=== PATIENT | female | born 1990 | race Caucasian/White ===

== ENCOUNTER 2017-05-10 21:29 | Emergency (ER) | payer OTHER ==
[~2017-05-10] VITALS: Ht 160 cm; Wt 71.0 kg
[~2017-05-10 21:29] MED LIST: LEVO50TA PO
[2017-05-10 21:32] VITALS: TEMP 36.7; Ht 160 cm; Wt 71.0 kg
[2017-05-10] MEDS ORDERED: SODIUM CHLORIDE 0.9% 1000ML 1,000 ML IV ONE (22:00)
[2017-05-10 22:15] LABS: BASO % 0.6 %; BASO ABS # 0.03 K/uL (0-0.2); COMPLETE YES; IG% 0.2 %; LYMPH % 46.5 %; LYMPH ABS # 2.38 K/uL (1.2-3.4); MEAN CELL VOLUME 93.5 fL (80-100); MEAN CORPUSCULAR HEMOGLOBIN 32.2 pg (25-34); MEAN CORPUSCULAR HGB CONC 34.5 g/dl (32-36); MEAN PLATELET VOLUME 10.6 fL (7.4-10.4); MONO % 5.5 %; NEUT % 45.2 %; PLATELET COUNT 220 K/uL (130-400); RED BLOOD COUNT 4.28 M/uL (4.2-5.4); WHITE BLOOD COUNT 5.12 K/uL (4.8-10.8)
[2017-05-10 22:28] LABS: POINT OF CARE TROPONIN I < 0.030 ng/ml (0-0.045)
[2017-05-10 22:29] LABS: URINE APPEARANCE CLEAR (CLEAR); URINE BILIRUBIN NEG (NEG); URINE COLOR YELLOW; URINE NITRITE NEG (NEG); URINE PH 5.5 (4.5-7.5); URINE SPECIFIC GRAVITY 1.022 (1.000-1.030); UROBILINOGEN NEG (NEG); ZZUR CULT IF INDIC CLEAN CATCH NO
[2017-05-10 22:33] LABS: BUN/CREATININE RATIO 17.9 (10-20); CALCIUM 8.9 mg/dl (8.5-10.1); CREATININE 0.75 mg/dl (0.60-1.20); POTASSIUM 3.4 mmol/L (3.5-5.1)
--- NOTE | 2017-05-10 22:37 | DIAGNOSTIC IMAGING REPORT ---
CHEST 2 VIEWS ROUTINE CLINICAL HISTORY: Near syncope/sob COMPARISON STUDY: No previous studies for comparison. FINDINGS: No pneumothorax or pleural effusion is present. Cardiac size is normal. Mediastinal contours are normal. A coiled metallic density within the AP window represents a patent ductus arteriosus closure device. No evidence of pulmonary edema. There is no consolidation to suggest pneumonia. IMPRESSION: No acute cardiopulmonary findings. Electronically signed by: Curtis Newsome M.D. 05/10/2017 10:36 PM Dictated Date/Time: 05/10/2017 10:34 PM
[2017-05-10 22:38] LABS: MANUAL MICROSCOPIC REQUIRED? NO; REVIEW REQ? NO
[2017-05-10 22:44] LABS: ALB/GLOB RATIO 1.1 (0.9-2); THYROID STIMULATING HORMONE 4.26 uIu/ml (0.300-4.500)
[2017-05-10 23:20] VITALS: BP 113/66; PULSE 96; O2SAT 97
--- NOTE | 2017-05-11 04:22 | EMERGENCY ROOM VISIT NOTE ---
History First contact with patient: 21:34 Chief Complaint: SHORTNESS OF BREATH Stated Complaint: LIGHTHEADED,TINGLY,SHAKING,DIFFICULTY Nursing Triage Summary: pt reports that she had a sudden onset of SOB. pt then sat down and reports feeling "tingly and out of it." pt then felt weak. pt denies SOb at this time. History of Present Illness The patient is a 26 year old female who presents to the Emergency Room with complaints of acute onset of lightheadedness, dizziness, and shortness of breath. The patient states that she was standing at home when she began with onset of symptoms. She initially sat down, and then laid down without significant improvement of symptoms. The patient felt weak and tired. She had fleeting shortness of breath that has since resolved. The patient estimates that her total episode was one to 2 minutes in length. She did not have seizure -like activity as she was immediately attended to by her significant other. The patient has had several episodes of this in the past. She has followed with cardiology and her primary care physician. She had an echocardiogram last year that was normal. She has been without recent illness or travel. She denies chance of . No new medications. She rates her current discomfort a 2/10. Review of Systems More than 10 systems were reviewed and otherwise negative with the exception of history of present illness. Past Medical/Surgical History Medical Problems: (1) Hypothyroidism Family History Gallbladder disease Lung disease Social History Smoking Status: Never Smoker Alcohol Use: occasionally Drug Use: none Marital Status: in relationship Housing Status: lives with significant other Occupation Status: employed Current/Historical Medications No Active Prescriptions or Reported Meds Physical Exam Vital Signs Date Time Temp Pulse Resp B/P (MAP) Pulse Ox O2 Delivery O2 Flow Rate FiO2 05/10/17 23:20 96 18 113/66 97 Room Air 05/10/17 22:23 78 16 117/68 100 Room Air 05/10/17 22:19 100 Room Air 05/10/17 21:45 79 05/10/17 21:32 36.7 74 18 144/84 100 Room Air Pain Rating (0-10): 0 Physical Exam VITALS: Vitals are noted on the nurse's note and reviewed by myself. Vital signs stable. GENERAL: Well-developed, well-nourished, white female, who is in no acute distress and resting comfortably. Patient is cooperative with the examination. HEAD: Normocephalic atraumatic. EARS: External ear normal. External auditory canals clear, tympanic membranes pearly martinez without erythema or effusion bilaterally. EYES: Pupils equal round and reactive to light and accommodation. Conjunctivae without injection, sclerae without icterus. Extraocular movements intact. NOSE: Patent, turbinates without inflammation or discharge. MOUTH: Mucous membranes moist. Tonsils are not enlarged. Pharynx without erythema, blood, or exudate. Uvula midline. Airway patent. NECK: Supple without nuchal rigidity. No lymphadenopathy. No thyromegaly. Cervical spine is nontender. HEART: Regular rate and rhythm without murmurs gallops or rubs. LUNGS: Clear to auscultation bilaterally without wheezes, rales or rhonchi. No retractions or accessory muscle use. ABDOMEN: Positive normal bowel sounds x 4. Soft, nontender, without masses or organomegaly. No guarding or rebound tenderness. MUSCULOSKELETAL: No muscle atrophy, erythema, or edema noted. Full range of motion without joint tenderness in all extremities. No tenderness to palpation. Normal gait. Strength 5/5 throughout. NEURO: Patient was alert and oriented to person place and time. CN II through XII grossly intact. Deep tendon reflexes 2+ throughout. No focal neurological deficits SKIN: The skin was without rashes, erythema, edema, or bruising. Capillary reflex less than 2 seconds. Medical Decision & Procedures ER Provider Diagnostic Interpretation: CHEST 2 VIEWS ROUTINE CLINICAL HISTORY: Near syncope/sob COMPARISON STUDY: No previous studies for comparison. FINDINGS: No pneumothorax or pleural effusion is present. Cardiac size is normal. Mediastinal contours are normal. A coiled metallic density within the AP window represents a patent ductus arteriosus closure device. No evidence of pulmonary edema. There is no consolidation to suggest pneumonia. IMPRESSION: No acute cardiopulmonary findings. Laboratory Results 05/10/17 22:05 Red Blood Count 4.28, Mean Corpuscular Volume 93.5, Mean Corpuscular Hemoglobin 32.2, Mean Corpuscular Hemoglobin Concent 34.5, Mean Platelet Volume 10.6, Neutrophils (%) (Auto) 45.2, Lymphocytes (%) (Auto) 46.5, Monocytes (%) (Auto) 5.5, Eosinophils (%) (Auto) 2.0, Basophils (%) (Auto) 0.6, Neutrophils # (Auto) 2.32, Lymphocytes # (Auto) 2.38, Monocytes # (Auto) 0.28, Eosinophils # (Auto) 0.10, Basophils # (Auto) 0.03 05/10/17 22:05 Test 05/10/17 22:05 05/10/17 22:09 05/10/17 22:15 White Blood Count 5.12 K/uL (4.8-10.8) Red Blood Count 4.28 M/uL (4.2-5.4) Hemoglobin 13.8 g/dL (12.0-16.0) Hematocrit 40.0 % (37-47) Mean Corpuscular Volume 93.5 fL (80-100) Mean Corpuscular Hemoglobin 32.2 pg (25-34) Mean Corpuscular Hemoglobin Concent 34.5 g/dl (32-36) Platelet Count 220 K/uL (130-400) Mean Platelet Volume 10.6 fL (7.4-10.4) Neutrophils (%) (Auto) 45.2 % Lymphocytes (%) (Auto) 46.5 % Monocytes (%) (Auto) 5.5 % Eosinophils (%) (Auto) 2.0 % Basophils (%) (Auto) 0.6 % Neutrophils # (Auto) 2.32 K/uL (1.4-6.5) Lymphocytes # (Auto) 2.38 K/uL (1.2-3.4) Monocytes # (Auto) 0.28 K/uL (0.11-0.59) Eosinophils # (Auto) 0.10 K/uL (0-0.5) Basophils # (Auto) 0.03 K/uL (0-0.2) RDW Standard Deviation 41.0 fL (36.4-46.3) RDW Coefficient of Variation 12.1 % (11.5-14.5) Immature Granulocyte % (Auto) 0.2 % Immature Granulocyte # (Auto) 0.01 K/uL (0.00-0.02) Anion Gap 6.0 mmol/L (3-11) Est Creatinine Clear Calc Drug Dose 108.3 ml/min Estimated GFR () 128.4 Estimated GFR (Non- 110.8 BUN/Creatinine Ratio 17.9 (10-20) Calcium Level 8.9 mg/dl (8.5-10.1) Total Bilirubin 0.4 mg/dl (0.2-1) Aspartate Amino Transf (AST/SGOT) 15 U/L (15-37) Alanine Aminotransferase (ALT/SGPT) 22 U/L (12-78) Alkaline Phosphatase 61 U/L (45-117) Total Protein 7.0 gm/dl (6.4-8.2) Albumin 3.7 gm/dl (3.4-5.0) Globulin 3.3 gm/dl (2.5-4.0) Albumin/Globulin Ratio 1.1 (0.9-2) Thyroid Stimulating Hormone (TSH) 4.260 uIu/ml (0.300-4.500) Bedside D-Dimer 65 ng/mlFEU (0-450) Bedside Troponin I < 0.030 ng/ml (0-0.045) Urine Color YELLOW Urine Appearance CLEAR (CLEAR) Urine pH 5.5 (4.5-7.5) Urine Specific Maud 1.022 (1.000-1.030) Urine Protein NEG (NEG) Urine Glucose (UA) NEG (NEG) Urine Ketones NEG (NEG) Urine Occult Blood NEG (NEG) Urine Nitrite NEG (NEG) Urine Bilirubin NEG (NEG) Urine Urobilinogen NEG (NEG) Urine Leukocyte Esterase NEG (NEG) Urine Test NEG (NEG) Medications Administered Medications (Trade) Dose Ordered Sig/Devin Route Start Time Stop Time Status Last Admin Dose Admin Sodium Chloride 1,000 ml @ 999 mls/hr Q1H1M ONCE IV 05/10/17 22:00 05/10/17 23:00 DC 05/10/17 22:13 999 MLS/HR ED Course Physical exam and history were performed. Nursing notes, EMR, and Medication List were personally reviewed. Patient appears to have had a near syncopal episode with associated shortness of breath. She is evidently had symptoms like this in the past. IV access was established and labs were obtained. The patient was hydrated with normal saline. Chest x-ray was performed. EKG was normal sinus rhythm at 80 bpm without ischemia or ectopy. The patient was placed on a swimming pool plasterer helper. The patient's blood work is as above and was reviewed. She does not have a significantly elevated white blood cell count, gross anemia, bandemia, or significant electrolyte imbalance. Lipase and transaminases are nondiagnostic. TSH is euthyroid state. Troponin and d-dimer 1 are both negative. Urine is without signs of infection. She is not . Chest x-ray is without acute findings. The patient remained in normal sinus rhythm while on the swimming pool plasterer helper. The patient was reevaluated multiple times with a course of her stay. She did not have any worsening or return of her symptoms, which evidently only lasted for a few moments. The patient has had symptoms like this in the past, and has evidently undergone cardiology evaluation previously. Her symptoms certainly could be related to stress or anxiety. I do not suspect a cardiopulmonary etiology of her symptoms at this time. She should follow with her primary care physician, as she may be a good candidate for an event monitor. The patient was invited back to the emergency department with any new, worsening, or concerning symptoms. She was pleased with plan of care and rated her discomfort a 0/10 at the time of departure. The chart was completed utilizing [employer] Speech Voice Recognition Software. Grammatical errors, random word insertions, pronoun errors, and incomplete sentences are an occasional consequence of this system due to software limitations, ambient noise, and hardware issues. Any formal questions or concerns about the content, text, or information contained within the body of this dictation should be directly addressed to the provider for clarification. . Medical Decision Differential diagnosis: Etiologies such as vasovagal event, infection, hypoglycemia, electrolyte abnormalities, cardiac sources, intracerebral event, toxicologic, neurologic, as well as others were entertained. Medication Reconcilliation Current Medication List: was personally reviewed by me Blood Pressure Screening Patient's blood pressure: Normal blood pressure Impression Primary Impression: Near syncope Departure Information Dispostion Home / Self-Care Condition GOOD Prescriptions No Active Prescriptions or Reported Meds Forms HOME CARE DOCUMENTATION FORM, IMPORTANT VISIT INFORMATION Patient Instructions My [facility] Additional Instructions You were seen and evaluated today on an emergency basis only. This is not a substitute for, or an effort to provide, complete comprehensive medical care. It is not possible to recognize and treat all injuries or illnesses in a single emergency department visit. For this reason it is recommended that you followup with your primary care physician next week for ongoing care and evaluation. Drink plenty of fluids and remain well hydrated. You are welcome to return to the emergency department anytime with new, worsening, or concerning symptoms.
== END 2017-05-10 23:39 | disposition home or self-care (01) ==
LOC: C.EDB 21:30 → C.EDA 23:39
DX: R55 Syncope and collapse (principal); E03.9 Hypothyroidism, unspecified

== ENCOUNTER 2021-02-16 07:41 | Inpatient (IN) ==
[2021-02-16] MEDS ORDERED: OXYTOCIN 30 UNITS/500 ML BAG IV PRN (08:19)
[2021-02-16 08:53] LABS: Hematocrit (blood only) 31.5 % (37-47); Hemoglobin 10.4 g/dL (12.0-16.0); Mean Corpuscular Volume 90.8 fL (80-100); Mean Platelet Volume 11.2 fL (7.4-10.4); Platelet Count 237 K/uL (130-400); RDW Standard Deviation 45.3 fL (36.4-46.3); Red Blood Count 3.47 M/uL (4.2-5.4); White Blood Count 7.58 K/uL (4.8-10.8)
[2021-02-16] MEDS ORDERED: DINOPROSTONE 10 MG INSERT PV ONE (09:45)
--- NOTE | 2021-02-16 09:45 | Obstetrical Progress Note ---
Date of Service February 16, 2021 Assessment & Plan Admission and Anticipated Discharge Date Admission Date: February 16, 2021 Subjective Admit Note 30 F P1001 at 40.4 weeks admitted for induction of labor for post-dates . GBS is negative. Covid is negative. Cervix is finger tip/50/- 3/vertex/posterior/soft/intact. EFW 8 lbs. Will start Cervidil for cervical ripening. Results & Data ([facility]) Vital Signs (Past 12 Hours) Vital Signs Temp Pulse Resp BP 02/16/21 07:59 36.9 C 18 02/16/21 07:48 109 H 131/75
--- NOTE | 2021-02-16 10:37 | Obstetrical Progress Note ---
Date of Service February 16, 2021 Assessment & Plan Admission and Anticipated Discharge Date Admission Date: February 16, 2021 Physical Exam Genitourinary: OB Exam Monitor Tracing: + external FHT monitor used, + external uterine monitor used, + category I and + normal FHT variability Cervidil 10 mg placed vaginally Results & Data ([facility]) Vital Signs (Past 12 Hours) Vital Signs Temp Pulse Resp BP 02/16/21 07:59 36.9 C 18 02/16/21 07:48 109 H 131/75
--- NOTE | 2021-02-16 11:24 | Anesthesiology Consultation ---
Date of Service February 16, 2021 Assessment & Plan Chart Review Chart Review: Acceptable Risk for Surgery, Patient NOT seen in Pre Admission Testing and Acceptable Risk for Labor Epidural Consults Requested none ASA ASA2 Proposed Anesthesia Anesthesia Type: Labor Epidural and CSE History Height/Weight Height: 5 ft 3 in Weight: 89.358 kg Allergies Allergy/AdvReac Type Severity Reaction Status Date / Time No Known Drug Allergies Allergy Unknown NONE Verified 05/10/17 21:51 pollen extracts Allergy Difficulty Verified 02/16/21 07:54 Breathing Unclassified Drugs Allergy Unknown ?ALLERGY Uncoded 05/10/17 21:51 TO BEES. STRONG FAMILY HX Medications Home Medications Medication Instructions Recorded Confirmed Last Taken ferrous sulfate [iron] 325 mg PO BID 02/16/21 02/16/21 02/16/21 prenat.vits,cristobal,[id number] 1 tab PO DAILY 02/16/21 02/16/21 02/16/21 [ Vitamin] Past Medical History Medical History Ganglion of left wrist Removal of cyst Exercise / Class Metabolic Activity II 4-5 Yardwork/Stairs/Walk up hill Past Family History Family History Grandmother (Paternal) Cancer Aunt Diabetes Uncle Diabetes Past Anesthesia History No Hx of Anesthesia Complications and No Family Hx of Anesthesia Complications History of PONV No Hx of PONV and No Hx of Motion Sickness Social History Smoking Status: Never smoker Hx Alcohol Use: No Hx Substance Use: No Physical Exam Vital Signs Last Vital Signs Temp 36.6 C 02/16/21 11:12 Pulse 68 02/16/21 11:12 Resp 18 02/16/21 11:12 BP 82/47 L 02/16/21 11:12 Testing Laboratory Results 02/16/21 08:35
[2021-02-16] MEDS: LACTATED RINGER'S 1,000 ML IV PRN (18:59)
--- NOTE | 2021-02-16 22:34 | Obstetrical Progress Note ---
Date of Service February 16, 2021 Assessment & Plan Admission and Anticipated Discharge Date Admission Date: February 16, 2021 Physical Exam Genitourinary: Manual OB Exam: + cervical dilation 2 cm, + cervical effacement 50% and + station high OB Exam Monitor Tracing: + external FHT monitor used, + external uterine monitor used, + category I and + normal FHT variability Cervidil pulled from vagina. Tight 2 cm. Will start Cytotec 50mcg PO every 4 hours Results & Data ([facility]) Vital Signs (Past 12 Hours) Vital Signs Temp Pulse Resp BP 02/16/21 22:19 89 127/71 02/16/21 21:30 82 117/63 02/16/21 18:29 37.0 C 16 02/16/21 18:27 98 H 116/64 02/16/21 15:10 92 H 115/68 02/16/21 15:07 36.7 C 16 02/16/21 11:12 36.6 C 68 18 82/47 L
[2021-02-17] MEDS: miSOPROStoL 50 MCG TAB PO SCH ×5 (00:44→16:19)
[2021-02-17] MEDS ORDERED: SUPERCREAM 0.870% 15 GM JAR EXT PRN ×2 (02:49→15:59)
[2021-02-17] MEDS ORDERED: IBUPROFEN 600 MG TAB PO PRN (02:49)
[2021-02-17] MEDS ORDERED: DIPHTHERIA/TETANUS/PERTUSSIS 0.5 ML SYR/VIAL IM ONE (02:49)
[2021-02-17] MEDS ORDERED: BENZOCAINE 20% AER SPR 82.5 GM CAN EXT PRN ×2 (02:49→15:59)
[2021-02-17] MEDS ORDERED: OXYTOCIN 30 UNITS/500 ML BAG IV PRN ×3 (02:49→15:59)
[2021-02-17] MEDS ORDERED: bisacodyL 10 MG SUPP PR PRN ×2 (02:49→15:59)
[2021-02-17] MEDS ORDERED: ACETAMINOPHEN 325 MG TAB PO PRN ×2 (02:49→15:59)
[2021-02-17] MEDS ORDERED: HYDROCORTISONE ACETATE 25 MG SUPP PR PRN ×2 (02:49→15:59)
--- NOTE | 2021-02-17 07:08 | Obstetrical Progress Note ---
Date of Service February 17, 2021 Assessment & Plan Admission and Anticipated Discharge Date Admission Date: February 16, 2021 Physical Exam Genitourinary: OB Exam Abdomen: + vertex and + irregular contractions Manual OB Exam: + cervical dilation 2 cm, + cervical effacement 50% and + station high OB Exam Monitor Tracing: + external FHT monitor used, + external uterine monitor used and + category I will start Oxytocin to augment contractions Results & Data ([facility]) Vital Signs (Past 12 Hours) Vital Signs Temp Pulse Resp BP 02/17/21 07:01 78 124/74 02/17/21 05:03 37.0 C 88 18 118/80 02/17/21 03:34 76 97/52 L 02/17/21 03:33 37.1 C 16 02/17/21 00:46 36.6 C 97 H 18 99/51 L 02/16/21 23:07 84 122/69 02/16/21 23:06 36.9 C 18 02/16/21 22:19 89 127/71 02/16/21 22:17 36.8 C 16 02/16/21 21:30 82 117/63
[2021-02-17] MEDS ORDERED: FERROUS SULFATE 325 MG TAB PO SCH (08:00)
[2021-02-17] MEDS ORDERED: DOCUSATE SODIUM 100 MG CAP PO SCH (08:00)
[2021-02-17] MEDS ORDERED: PRENATAL VITAMIN 1 TAB PO SCH (08:00)
--- NOTE | 2021-02-17 09:13 | History & Physical Report ---
Date of Service February 17, 2021 Assessment & Plan (1) Post-term , 40-42 weeks of gestation: 30-year-old -0-0-1 at 40 weeks and 5 days of gestation, admitted yesterday for induction of labor. Status post Cervidil and p.o. Cytotec for cervical ripening. Vital signs stable afebrile Heart rate reassuring GBS and hunt virus testing were negative Plan to continue with low-dose Pitocin per protocol and AROM when able All questions were answered. Admission and Anticipated Discharge Date Admission Date: February 16, 2021 History of Present Illness Primary Care Provider: NO PCP Patient is a 30-year-old -0-0-1 at 40 weeks and 5 days of gestation who was admitted yesterday for induction of labor for postdates. She received Cervidil and 2 doses of p.o. Cytotec for cervical ripening. She feels mild irregular contractions, not painful yet. Her has been uncomplicated. She has a history of full-term vaginal delivery in 2019 in [place], baby was a viable male infant weight 9 pounds 1 ounces no history of shoulder dystocia. She has not had ultrasound for estimated weight during this . GBS was negative, coronavirus testing was negative. I reviewed her records and history from office and confirmed with her. I performed bedside ultrasound, vertex, estimated weight 4300 g. Discussed the risk of shoulder dystocia with larger babies and she understands and desires trial of vaginal . Allergies Allergy/AdvReac Type Severity Reaction Status Date / Time pollen extracts Allergy Intermediate Difficulty Verified 02/17/21 07:13 Breathing bee venom protein (honey bee) Allergy Unknown ?ALLERGY Verified 02/17/21 07:12 TO BEES. STRONG FAMILY HX No Known Drug Allergies Allergy Unknown NONE Verified 05/10/17 21:51 Home Medications Medication Instructions Recorded Confirmed Type ferrous sulfate [iron] 325 mg PO BID 02/16/21 02/16/21 History prenat.vits,cristobal,[id number] 1 tab PO DAILY 02/16/21 02/16/21 History [ Vitamin] Patient History Medical History Ganglion of left wrist Removal of cyst Family History Grandmother (Paternal) Cancer Aunt Diabetes Uncle Diabetes Social History Smoking Status: Never smoker Hx Alcohol Use: No Hx Substance Use: No Preferred Language: Malian Communication Ability: Effective Beliefs That Will Affect Care: None marital status: Current Living Situation: Spouse and Family Other Information That Helps Us Care for You: No Feels Safe at Home: Yes Safety Concerns: Feels Safe At This Time Assistive Devices: None SAUTE CHEF History No h/o STD Review of Systems All systems reviewed & are unremarkable except as noted in HPI & below Physical Exam Gastrointestinal (Abdomen): normal bowel sounds, soft, nontender, no hepatosplenomegaly (Lv 9-07/01 lb) Bed side US: 4300 gr, vertex, FHR 140's Genitourinary: Manual OB Exam: + cervical dilation 3 cm, + cervical effacement 50% and + station high OB Exam Monitor Tracing: + external uterine monitor used and + category I Results & Data ([facility]) Vital Signs (Past 12 Hours) Vital Signs Temp Pulse Resp BP 02/17/21 08:58 110 H 120/72 02/17/21 07:01 36.7 C 78 20 124/74 02/17/21 05:03 37.0 C 88 18 118/80 02/17/21 03:34 76 97/52 L 02/17/21 03:33 37.1 C 16 02/17/21 00:46 36.6 C 97 H 18 99/51 L 02/16/21 23:07 84 122/69 02/16/21 23:06 36.9 C 18 02/16/21 22:19 89 127/71 02/16/21 22:17 36.8 C 16 02/16/21 21:30 82 117/63 Laboratory Results Lab Results 02/16/21 02/16/21 02/16/21 Range/Units 08:35 08:49 08:49 WBC 7.58 (4.8-10.8) K/uL RBC 3.47 L (4.2-5.4) M/uL Hgb 10.4 L (12.0-16.0) g/dL Hct 31.5 L (37-47) % MCV 90.8 (80-100) fL MCH 30.0 (25-34) pg MCHC 33.0 (32-36) g/dL RDW Std Deviation 45.3 (36.4-46.3) fL RDW Coeff of Sylvie 14.0 (11.5-14.5) % Plt Count 237 (130-400) K/uL MPV 11.2 H (7.4-10.4) fL COVID-19 [facility] SARS-CoV-2, RNA, NAAT NEGATIVE (NEGATIVE)
[2021-02-17] MEDS: LACTATED RINGER'S 1,000 ML IV PRN ×2 (09:20→10:32)
[2021-02-17] MEDS ORDERED: ePHEDrine sulfate 50 MG/ML AMP ONE (09:22)
[2021-02-17] MEDS ORDERED: BUPIVACAINE 0.25% 30 ML VIAL ONE (09:22)
[2021-02-17] MEDS ORDERED: SODIUM CHLORIDE 0.9% INJ 10 ML VIAL ONE (09:22)
[2021-02-17] MEDS ORDERED: fentaNYL 2MCG/ML ROPIVACAINE 1.25MG/ML 100 ML BAG EPI ONE (09:23)
[2021-02-17] MEDS ORDERED: fentaNYL citrate 100 MCG/2 ML VIAL ONE (09:23)
[2021-02-17] MEDS ORDERED: METOCLOPRAMIDE HCL 20 MG in SODIUM CHLORIDE 0.9% 50 ML IV PRN (10:08)
[2021-02-17] MEDS ORDERED: NALOXONE HCL 1 MG in SODIUM CHLORIDE 0.9% 1000ML 1,000 ML IV PRN (10:08)
[2021-02-17] MEDS ORDERED: ePHEDrine sulfate 50 MG/ML AMP IV PRN (10:08)
[2021-02-17] MEDS ORDERED: fentaNYL 2MCG/ML ROPIVACAINE 1.25MG/ML 100 ML BAG EPI PRN (10:08)
[2021-02-17] MEDS ORDERED: NALOXONE HCL 0.4 MG/1 ML VIAL/CARP IV PRN (10:08)
[2021-02-17] MEDS ORDERED: diphenhydrAMINE 50 MG/ML VIAL IV PRN (10:08)
[2021-02-17] MEDS ORDERED: ONDANSETRON INJ 2 MG/ML 2 ML VIAL IV PRN (10:08)
--- NOTE | 2021-02-17 12:48 | Obstetrical Progress Note ---
Date of Service February 17, 2021 Assessment & Plan Admission and Anticipated Discharge Date Admission Date: February 16, 2021 Subjective Patient is reevaluated Received epidural and comfortable now VE; 3-4 cm/ 50%/ -2, AROM'ed clear fluid FHR categ I [place]: ctxs q 2-4 min, pitocin is a t 8 miu/ min Continue to monitor Results & Data ([facility]) Vital Signs (Past 12 Hours) Vital Signs Temp Pulse Resp BP Pulse Ox 02/17/21 12:42 81 95 02/17/21 12:38 91 H 124/60 02/17/21 12:37 76 95 02/17/21 12:32 101 H 96 02/17/21 12:27 88 95 02/17/21 12:22 108 H 95 02/17/21 12:21 106 H 89/51 L 02/17/21 12:17 103 H 95 02/17/21 12:12 93 H 95 02/17/21 12:07 95 H 95 02/17/21 12:06 104 H 92/53 L 02/17/21 12:02 100 H 96 02/17/21 11:57 100 H 94 02/17/21 11:52 101 H 95 02/17/21 11:51 105 H 95/54 L 02/17/21 11:47 95 H 95 02/17/21 11:42 94 H 95 02/17/21 11:41 90 94 02/17/21 11:37 97 H 98/56 L 95 02/17/21 11:36 89 94 02/17/21 11:32 102 H 94 02/17/21 11:29 98 H 94 02/17/21 11:27 90 93 02/17/21 11:23 81 94 02/17/21 11:22 120 H 97/53 L 95 02/17/21 11:17 102 H 93 02/17/21 11:12 97 H 93 02/17/21 11:07 97 H 96/55 L 93 02/17/21 11:02 105 H 92 02/17/21 11:00 37.0 C 20 02/17/21 10:57 93 H 92 02/17/21 10:52 96 H 92 02/17/21 10:50 101 H 99/54 L 02/17/21 10:47 107 H 92 02/17/21 10:45 102 H 96/51 L 02/17/21 10:42 103 H 93 02/17/21 10:40 103 H 104/56 L 94 02/17/21 10:37 96 H 92 02/17/21 10:35 100 H 101/57 L 02/17/21 10:32 99 H 94 02/17/21 10:31 94 H 94 02/17/21 10:30 98 H 106/55 L 02/17/21 10:27 96 H 94 02/17/21 10:25 107 H 107/54 L 94 02/17/21 10:22 114 H 95 02/17/21 10:20 106 H 103/73 02/17/21 10:19 99 H 94 02/17/21 10:17 109 H 94 02/17/21 10:14 114 H 101/53 L 02/17/21 10:12 114 H 105/56 L 97 02/17/21 10:09 112 H 95/51 L 02/17/21 10:08 102 H 97/56 L 02/17/21 10:07 99 H 99 02/17/21 10:06 90 93/54 L 02/17/21 10:05 114 H 97/53 L 02/17/21 10:04 101 H 70/39 L 02/17/21 10:03 96 H 67/34 L 02/17/21 10:02 103 H 96 02/17/21 10:00 120 H 122/70 02/17/21 09:58 101 H 110/68 02/17/21 09:57 92 H 98 02/17/21 09:52 80 98 02/17/21 09:47 77 99 02/17/21 09:43 89 94 02/17/21 09:42 86 96 02/17/21 09:37 94 H 96 02/17/21 09:32 85 96 02/17/21 09:29 82 94 02/17/21 09:27 114 H 95 02/17/21 08:58 110 H 120/72 02/17/21 07:01 36.7 C 78 20 124/74 02/17/21 05:03 37.0 C 88 18 118/80 02/17/21 03:34 76 97/52 L 02/17/21 03:33 37.1 C 16
[2021-02-17] MEDS ORDERED: MINERAL OIL 30 ML UDC ONE (15:35)
[2021-02-17] MEDS ORDERED: MEASLES, MUMPS & RUBELLA VIRUS VIAL SQ ONE (15:59)
--- NOTE | 2021-02-17 16:04 | Anesthesiology Progress Note ---
Date of Service February 17, 2021 Anesthesia Post Procedure Vital Signs Vital Signs: Temp Pulse Resp BP Pulse Ox 02/17/21 15:49 100 H 136/58 L 02/17/21 15:37 108 H 100 02/17/21 15:35 88 89 L 02/17/21 15:32 88 100 02/17/21 15:27 84 79 L 02/17/21 15:22 102 H 99 02/17/21 15:21 96 H 91/53 L 02/17/21 15:17 93 H 97 02/17/21 15:12 106 H 97 02/17/21 15:07 99 H 91/54 L 97 02/17/21 15:02 99 H 97 02/17/21 14:57 86 96 02/17/21 14:52 97 H 124/65 95 02/17/21 14:47 90 95 02/17/21 14:42 81 95 02/17/21 14:37 104 H 121/69 96 02/17/21 14:32 111 H 96 02/17/21 14:31 79 94 02/17/21 14:27 106 H 95 02/17/21 14:22 108 H 126/66 96 02/17/21 14:17 93 H 95 02/17/21 14:13 78 94 02/17/21 14:12 97 H 96 02/17/21 14:07 77 94 02/17/21 14:06 103 H 123/64 02/17/21 14:05 91 H 94 02/17/21 14:02 83 95 02/17/21 14:00 77 94 02/17/21 13:57 106 H 95 02/17/21 13:52 98 H 20 130/69 95 02/17/21 13:47 98 H 95 02/17/21 13:42 84 95 02/17/21 13:38 83 121/63 02/17/21 13:37 97 H 96 02/17/21 13:32 102 H 95 02/17/21 13:30 84 20 94 02/17/21 13:27 81 95 02/17/21 13:25 93 H 93 02/17/21 13:23 94 H 114/63 02/17/21 13:22 94 H 95 02/17/21 13:17 99 H 96 02/17/21 13:12 104 H 95 02/17/21 13:07 78 110/66 95 02/17/21 13:02 97 H 96 02/17/21 13:00 20 02/17/21 12:57 110 H 95 02/17/21 12:52 108 H 137/70 97 02/17/21 12:47 97 H 95 02/17/21 12:46 87 94 02/17/21 12:42 81 95 02/17/21 12:38 91 H 124/60 02/17/21 12:37 76 95 02/17/21 12:32 101 H 96 02/17/21 12:27 88 95 02/17/21 12:22 108 H 95 02/17/21 12:21 106 H 89/51 L 02/17/21 12:17 103 H 95 02/17/21 12:12 93 H 95 02/17/21 12:07 95 H 95 02/17/21 12:06 104 H 20 92/53 L 02/17/21 12:02 100 H 96 02/17/21 11:57 100 H 94 02/17/21 11:52 101 H 95 02/17/21 11:51 105 H 95/54 L 02/17/21 11:47 95 H 95 02/17/21 11:42 94 H 95 02/17/21 11:41 90 94 02/17/21 11:37 97 H 98/56 L 95 02/17/21 11:36 89 94 02/17/21 11:32 102 H 94 02/17/21 11:29 98 H 94 02/17/21 11:27 90 93 02/17/21 11:23 81 94 02/17/21 11:22 120 H 97/53 L 95 02/17/21 11:17 102 H 93 02/17/21 11:12 97 H 93 02/17/21 11:07 97 H 20 96/55 L 93 02/17/21 11:02 105 H 92 02/17/21 11:00 37.0 C 20 02/17/21 10:57 93 H 92 02/17/21 10:52 96 H 92 02/17/21 10:50 101 H 99/54 L 02/17/21 10:47 107 H 92 02/17/21 10:45 102 H 96/51 L 02/17/21 10:42 103 H 93 02/17/21 10:40 103 H 104/56 L 94 02/17/21 10:37 96 H 92 02/17/21 10:35 100 H 101/57 L 02/17/21 10:32 99 H 94 02/17/21 10:31 94 H 94 02/17/21 10:30 98 H 106/55 L 02/17/21 10:27 96 H 94 02/17/21 10:25 107 H 107/54 L 94 02/17/21 10:22 114 H 95 02/17/21 10:20 106 H 103/73 02/17/21 10:19 99 H 94 02/17/21 10:17 109 H 94 02/17/21 10:14 114 H 101/53 L 02/17/21 10:12 114 H 105/56 L 97 02/17/21 10:09 112 H 95/51 L 02/17/21 10:08 102 H 97/56 L 02/17/21 10:07 99 H 99 02/17/21 10:06 90 93/54 L 02/17/21 10:05 114 H 97/53 L 02/17/21 10:04 101 H 70/39 L 02/17/21 10:03 96 H 67/34 L 02/17/21 10:02 103 H 96 02/17/21 10:00 120 H 122/70 02/17/21 09:58 101 H 110/68 02/17/21 09:57 92 H 98 02/17/21 09:52 80 98 02/17/21 09:47 77 99 02/17/21 09:43 89 94 02/17/21 09:42 86 96 02/17/21 09:37 94 H 96 02/17/21 09:32 85 96 02/17/21 09:29 82 94 02/17/21 09:27 114 H 95 02/17/21 08:58 110 H 120/72 02/17/21 07:01 36.7 C 78 20 124/74 02/17/21 05:03 37.0 C 88 18 118/80 02/17/21 03:34 76 97/52 L 02/17/21 03:33 37.1 C 16 02/17/21 00:46 36.6 C 97 H 18 99/51 L 04/30/21 23:07 84 122/69 02/16/21 23:06 36.9 C 18 02/16/21 22:19 89 127/71 02/16/21 22:17 36.8 C 16 02/16/21 21:30 82 117/63 02/16/21 18:29 37.0 C 16 02/16/21 18:27 98 H 116/64 Pain Intensity Bilateral Abdomen: Pain Intensity: 0 Transfer of Care Handoff Completed per policy Notes Mental Status: alert / awake / arousable Patient Amnestic to Procedure: Yes Nausea / Vomiting: adequately controlled Pain: adequately controlled Airway Patency, RR, SpO2: stable & adequate BP & HR: stable & adequate Hydration State: stable & adequate Neuraxial Anesthesia: was administered and sensory block is resolving Anesthetic Complications: no major complications apparent and Pt Satisfied with anesthetic care Notes: epidural pulled, tip intact
--- NOTE | 2021-02-17 17:21 | Delivery Summary ---
DATE OF OPERATION: 02/17/2021 DETAILS OF DELIVERY: The patient was found to be fully dilated and desired to push. She pushed through 3 contractions and delivered the head without difficulty. Shoulders came right after the head. Baby was handed to the mother where mouth and nose were suctioned. Cord was clamped x2 and cut at 1 minute delay. Cord blood was obtained. Vagina and perineum were checked, they were found to be intact. No lacerations were found and placenta was found to be in the vagina, delivered spontaneous as intact and complete. Uterus was explored and found to be empty. Lower segment was cleared of all clots and debris. EBL was 200 mL. Fundus was firm. Mom and baby tolerated the procedure well. Sponge and instrument count was correct x2. Baby was a viable male infant, Apgars 8/9, weight is 4567 gr. No complications happened and I was present during whole procedure. I attest to the content of the Intraoperative Record and any orders documented therein. Any exceptions are noted below. SYEDD
[2021-02-17] MEDS ORDERED: Nursing to Pharmacy Communication SCH (17:30)
[2021-02-17] MEDS: DOCUSATE SODIUM 100 MG CAP PO SCH (20:44)
[2021-02-17] MEDS: IBUPROFEN 600 MG TAB PO PRN (20:48)
[2021-02-18] MEDS: IBUPROFEN 600 MG TAB PO PRN ×3 (03:37→15:21)
[2021-02-18 06:45] LABS: Hematocrit (blood only) 32.1 % (37-47); Hemoglobin 10.4 g/dL (12.0-16.0); Mean Corpuscular Hemoglobin 29.4 pg (25-34); Mean Corpuscular Hgb Conc 32.4 g/dL (32-36); Mean Corpuscular Volume 90.7 fL (80-100); Mean Platelet Volume 11.3 fL (7.4-10.4); Platelet Count 236 K/uL (130-400); RDW Coefficient of Variation 14.3 % (11.5-14.5); RDW Standard Deviation 46.9 fL (36.4-46.3); Red Blood Count 3.54 M/uL (4.2-5.4); White Blood Count 12.06 K/uL (4.8-10.8)
[2021-02-18] MEDS ORDERED: PRENATAL VITAMIN 1 TAB PO SCH (08:00)
[2021-02-18] MEDS ORDERED: FERROUS SULFATE 325 MG TAB PO SCH (08:00)
[2021-02-18] MEDS: DOCUSATE SODIUM 100 MG CAP PO SCH (09:23)
--- NOTE | 2021-02-18 11:07 | Obstetrical Progress Note ---
Date of Service February 18, 2021 Assessment & Plan Admission and Anticipated Discharge Date Admission Date: February 16, 2021 Subjective Patient is seen and examined. She feels well, no complaints. Desires d/c home Ambulating without dizziness Voiding without difficulty Tolerating regular diet with out N&V Bleeding is minimal No fever/ chills/ CP/ SOB/ N&V/ Leg pain Breast feeding without problems Vital Signs Temp Pulse Resp BP Pulse Ox 02/18/21 03:25 36.6 C 88 18 124/75 96 Lab Results 02/16/21 02/16/21 02/16/21 Range/Units 08:35 08:49 08:49 WBC 7.58 (4.8-10.8) K/uL RBC 3.47 L (4.2-5.4) M/uL Hgb 10.4 L (12.0-16.0) g/dL Hct 31.5 L (37-47) % MCV 90.8 (80-100) fL MCH 30.0 (25-34) pg MCHC 33.0 (32-36) g/dL RDW Std Deviation 45.3 (36.4-46.3) fL RDW Coeff of Sylvie 14.0 (11.5-14.5) % Plt Count 237 (130-400) K/uL MPV 11.2 H (7.4-10.4) fL COVID-19 Eval Order Covid19 [facility]Now [facility] SARS-CoV-2, RNA, NAAT NEGATIVE (NEGATIVE) 02/18/21 Range/Units 06:31 WBC 12.06 H (4.8-10.8) K/uL RBC 3.54 L (4.2-5.4) M/uL Hgb 10.4 L (12.0-16.0) g/dL Hct 32.1 L (37-47) % MCV 90.7 (80-100) fL MCH 29.4 (25-34) pg MCHC 32.4 (32-36) g/dL RDW Std Deviation 46.9 H (36.4-46.3) fL RDW Coeff of Sylvie 14.3 (11.5-14.5) % Plt Count 236 (130-400) K/uL MPV 11.3 H (7.4-10.4) fL COVID-19 Eval Order SARS-CoV-2, RNA, NAAT (NEGATIVE) PE: General: Alert, orientedx3, NAD Abd: soft, NT, fundus firm, below Umbilicus Perineum intact, Lochia rubra minimal Ext; NT, no edema AP: 30 yo s/p , ppd# 1 VSS Afebrile doing well Continue routine care All questions were answered Discussed when to call D/C home afternoon Results & Data ([facility]) Vital Signs (Past 12 Hours) Vital Signs Temp Pulse Resp BP Pulse Ox 02/18/21 03:25 36.6 C 88 18 124/75 96
[2021-02-18] MEDS ORDERED: MEASLES, MUMPS & RUBELLA VIRUS VIAL SQ ONE (15:00)
[2021-02-18] MEDS ORDERED: bisacodyL 5 MG TABEC PO SCH ×2 (20:00)
== END 2021-02-18 16:15 | disposition home or self-care (01) | DRG 807 ==
LOC: 4S1 07:41 → 4S2 02-17 18:38